=== PATIENT | male | born 1975 | race Hispanic/Latino ===

== ENCOUNTER → 2024-01-29 | Outpatient (CLI) | payer OTHER ==
[2024-01-29 12:26] LABS: CREATININE 0.9 mg/dL (0.5-1.3)
[2024-01-29 12:33] LABS: HEMOGLOBIN A1C 5.9 % (4.0-6.0)
== END | disposition home or self-care (01) ==
LOC: LAB 09:11
PROVIDERS: ATTEND Student in an Organized Health Care Education/Training Program
DX: R07.9 Chest pain, unspecified (principal); E78.5 Hyperlipidemia, unspecified
CPT/HCPCS: 36415; 80048; 80061; 83036

== ENCOUNTER → 2024-03-04 | Outpatient (CLI) | payer OTHER | END | disposition home or self-care (01) | LOC: SHCH 11:28 | PROVIDERS: ATTEND Student in an Organized Health Care Education/Training Program | DX: R07.9 Chest pain, unspecified (principal); I10 Essential (primary) hypertension; E78.5 Hyperlipidemia, unspecified | CPT/HCPCS: 93306 ==

== ENCOUNTER → 2024-05-09 | Outpatient (CLI) | payer OTHER ==
[~2024-05-09] MED LIST: IOHEXOL 350 MG/ML 100ML INFUS..BTL IV ONE; METOPROLOL TARTRATE 1 MG/ML 5ML VIAL IV ONE
== END | disposition home or self-care (01) ==
LOC: RAH 10:40
PROVIDERS: ATTEND Student in an Organized Health Care Education/Training Program
DX: R07.9 Chest pain, unspecified (principal)
CPT/HCPCS: 75574; J3490 ×2; Q9967 ×2

== ENCOUNTER 2024-12-27 08:38 | Emergency (ER) | payer OTHER ==
[~2024-12-27] VITALS: Ht 175.3 cm; Wt 88.0 kg
--- NOTE | 2024-12-27 08:45 | ERN ---
General Chief Complaint: Abdominal Pain Stated Complaint: ABDOMINAL PAIN Time Seen by MD: 08:40 Source: patient, family History of Present Illness Initial Comments PATIENT IS A 49-YEAR-OLD MALE COMING IN TO BE EVALUATED FOR EPIGASTRIC PAIN. PER PATIENT THIS PAIN HAS BEEN ONGOING FOR TWO WEEKS HAS BEEN EVALUATED BY [facility] PAIN WAS GIVEN ANTIBIOTICS FOR A POSSIBLE GASTROENTERITIS. PER PATIENT HE HAD AN ENDOSCOPY AND COLONOSCOPY PERFORMED THEY DID FIND A POLYP IN HIS COLON AND DIVERTICULOSIS. THE PATIENT THE PAIN INTENSIFIED SO HE DECIDED TO COME IN FOR FURTHER EVALUATION. Allergies: Coded Allergies: No Known Drug Allergies (Unverified Allergy, Unknown, 12/27/24) ROS Dictation CONSTITUTIONAL: NO CHILLS, NO FEVER, NO WEAKNESS, NO DIAPHORESIS, NO MALAISE. HEAD/FACE: NO SIGNS OF TRAUMA. EENT: NO EYE PAIN, NO BLURRED VISION, NO TEARING, NO DOUBLE VISION, NO EAR PAIN, NO EAR DISCHARGE, NO NOSE PAIN, NO NASAL CONGESTION, NO THROAT PAIN, NO THROAT SWELLING, NO MOUTH PAIN. RESPIRATORY: NO COUGH, NO ORTHOPNEA, NO SOB, NO STRIDOR, NO WHEEZING. CARDIOVASCULAR: NO CHEST PAIN, NO EDEMA, NO PALPITATIONS, NO SYNCOPE. GASTROINTESTINAL/ABDOMINAL: ABDOMINAL PAIN, NO CONSTIPATION, NO DIARRHEA, NO NAUSEA, NO VOMITING. GENITOURINARY: NO ABNORMAL DISCHARGE, NO DYSURIA, NO FREQUENT URINATION, NO HEMATURIA. NO COMPLAINTS OF PAIN IN THE GENITALS. MUSCULOSKELETAL: NO BACK PAIN, NO GOUT, NO JOINT PAIN, NO JOINT SWELLING, NO MUSCLE PAIN, NO MUSCLE STIFFNESS, NO NECK PAIN. INTEGUMENTARY: NO CHANGE IN COLOR, NO CHANGE IN HAIR/NAILS, NO DRYNESS, NO LESION, NO LUMPS, NO RASH. NEUROLOGICAL/PSYCH: NO ANXIETY, NOT DEPRESSED, NO EMOTIONAL PROBLEM, NO HEADACHE, NO NUMBNESS, NO PRE-EXISTING DEFICIT, NO HISTORY OF SEIZURES, NO TREMORS, NO WEAKNESS. HEMATOLOGIC/LYMPHATIC: NOT ANEMIC, NO HISTORY OF BLOOD CLOTS, NO APPARENT B LEEDING, NO BRUISING, GLANDS NOT SWOLLEN. ALL SYSTEMS NEGATIVE, EXCEPT NOTED. Physical Exam Physical Exam Dictation VITAL SIGNS: REVIEWED. GENERAL APPEARANCE: ALERT, ORIENTED X3, NO ACUTE DISTRESS, OBESE. HEAD AND FACE: NON-TRAUMATIC. EYES: PERRL, PINK CONJUNCTIVAS, EYELID NO TRAUMA, ANTERIOR CHAMBER CLEAR. EARS: PINNAS INTACT AND NO SIGNS OF TRAUMA OR ERYTHEMA. EAR CANALS CLEAR AND NO DISCHARGE. TMS NO ERYTHEMA. NOSE: NO DISCHARGE, NO BLEEDING. OROPHARYNX: MOUTH NORMAL, TEETH NO CARIES, TONGUE PINK. PHARYNX CLEAR, NO ERYTHEMA. TONSILS NO EXUDATES, NO ABSCESSES NOTED. MUCOUS MEMBRANE MOIST. NECK: SUPPLE, NON-TENDER, NO THYROMEGALY, NO MASSES, NO JVD, NO BRUITS. BREAST: DEFERRED. CHEST: NO TENDERNESS, NO CREPITUS, NO PARADOXICAL MOVEMENT, NO RETRACTIONS. LUNGS: CLEAR, WELL-VENTILATED, SYMMETRIC, NO RALES, NO WHEEZING, NO RHONCHI, NO STRIDOR, GOOD BREATH SOUNDS BILATERALLY. HEART: REGULAR RATE, REGULAR RHYTHM, NO MURMUR, NO GALLOPS. VASCULAR: NO PERIPHERAL EDEMA. ABDOMEN: SOFT, POSITIVE BOWEL SOUNDS, NONDISTENDED, NO GUARDING, NONTENDER, NO REBOUND, NO MASSES NO HEPATOMEGALY, NO SPLENOMEGALY, NO LEONARDO'S SIGN, NO HERNIAS. RECTAL: DEFERRED. GENITAL: DEFERRED. NEUROLOGICAL: NORMAL SPEECH, GROSS MOTOR FUNCTION INTACT, GROSS SENSORY FUNCTION INTACT. MUSCULOSKELETAL: NECK NONTENDER, FULL RANGE OF MOTION, BACK NONTENDER, FULL RA NGE OF MOTION. EXTREMITIES: NONTENDER, FULL RANGE OF MOTION. SKIN: COLOR PINK, DRY, NO TURGOR, NO RASH, NO LACERATIONS, NO ABRASIONS, NO CONTUSIONS. LYMPHATICS: DEFERRED. Results Laboratory and Microbiology Lab and Micro Result Laboratory Tests Test 12/27/24 09:00 White Blood Count 6.9 K/uL (4.8-10.8) Red Blood Count 5.36 MIL/uL (4.50-6.20) Hemoglobin 16.1 g/dL (14.0-18.0) Hematocrit 48.8 % (42-54) Mean Corpuscular Volume 91.0 fL (79-99) Mean Corpuscular Hemoglobin 30.0 pg (27.0-33.0) Mean Corpuscular Hemoglobin Concent 33.0 g/dL (32.0-36.0) Red Cell Distribution Width 12.3 % (11.0-15.5) Platelet Count 309 K/uL (130-400) Mean Platelet Volume 10.8 fL (7.5-10.5) H Immature Granulocyte % (Auto) 0.1 % (0-1) Neutrophils (%) (Auto) 48.3 % (40.0-77.0) Lymphocytes (%) (Auto) 41.0 % (21.0-51.0) Monocytes (%) (Auto) 5.6 % (3.0-13.0) Eosinophils (%) (Auto) 4.1 % (0.0-8.0) Basophils (%) (Auto) 0.9 % (0.0-5.0) Neutrophils # (Auto) 3.3 K/uL (1.8-7.7) Lymphocytes # (Auto) 2.8 K/uL (1.0-4.8) Monocytes # (Auto) 0.4 K/uL (0.1-1.0) Eosinophils # (Auto) 0.28 K/uL (0.00-0.70) Basophils # (Auto) 0.06 K/uL (0.00-0.20) Absolute Immature Granulocyte (auto 0.01 K/uL (0-1) Nucleated Red Blood Cells 0.0 % (0.0-0.19) Sodium Level 121 mmol/L (136-145) L Potassium Level 3.4 mmol/L (3.5-5.1) L Chloride Level 100 mmol/L (101-111) L Carbon Dioxide Level 26 mmol/L (21-32) Blood Urea Nitrogen 13 mg/dL (7-18) Creatinine 1.1 mg/dL (0.5-1.3) Glomerular Filtration Rate Calc 82 mL/min (>90) Random Glucose 113 mg/dL (70-105) H Total Calcium 8.8 mg/dL (8.5-10.1) Total Bilirubin 0.4 mg/dL (0.2-1.0) Aspartate Amino Transf (AST/SGOT) 17 U/L (10-37) Alanine Aminotransferase (ALT/SGPT) 31 U/L (12-78) Alkaline Phosphatase 76 U/L (50-136) Total Creatine Kinase 71 U/L (21-232) Troponin I High Sensitivity 4 ng/L (4-75) Total Protein 7.3 g/dL (6.0-8.3) Albumin 3.6 g/dL (3.5-5.0) Lipase 20 U/L (16-77) Labs Reviewed?: Yes EKG/XRAY/US/CT/MRI EKG Comment 12/27/2024 time 8:45 a.m. Ventricular rate [address] wave elevation or depression CT Scan Comment [facility] [address] [place] [address] IMAGING REPORT Signed PATIENT: AZEEM PEDERSON JR MR#: [id number] : 1975 SEX: M AGE: 49 LOCATION: [facility] ORDER 3 STATUS: REG ER REPORT#: [id number] SERVICE REASON: ABD PAIN ORDERING PHYSICIAN: BRADLEY LIANG MD PROCEDURE: ABD PEL WO - CT ABDOMEN/PELVIS W/O CONTRAST CT ABDOMEN/PELVIS W/O CONTRAST HISTORY: Abdominal pain. COMPARISON: None TECHNIQUE: Multiple sequential axial images of the abdomen and pelvis were obtained from the dome of the diaphragm through symphysis pubis. Patient was not given contrast through intravenous route. Oral contrast was not given. FINDINGS: No pleural effusion is seen bilaterally. Minimal left lower lung pulmonary infiltrates are seen. Degenerative changes of the thoracolumbar spine are present. The heart is not enlarged. The liver, spleen, adrenal glands and pancreas are unremarkable. There is no evidence of hydronephrosis bilaterally. No evidence of renal stone is seen. Fecal material is seen in the colon. There are normal size retroperitoneal and mesenteric lymph nodes. No ascites is seen. No CT evidence of acute appendicitis is seen. Apical correlation is recommended. There is minimal diverticulosis. Pelvic sidewalls are symmetric bilaterally. Bladder is poorly distended. IMPRESSION: 1. No acute findings. CT was performed with one or more following dose reduction techniques: automated exposure control, adjustment of the mA and kv according to patient's size, or use of a iterative reconstruction technique. DICTATED BY: GAVINO EVANS MD DATE: 12/27/24 0949 ELECTRONICALLY SIGNED BY: GAVINO EVANS MD DATE: 12/27/24 1005 [facility] MDM: DIFFERENTIAL DIAGNOSIS: Gastritis, GERD, appendicitis, diverticulitis, Patient is a 49-year-old male coming in to be evaluated for abdominal discomfort. Patient states he was evaluated by his PCP and sent for endoscopy and colonoscopy which were negative. Patient is here for further evaluation laboratory workup including CT negative for acute findings. Patient will be discharged in stable condition with a diagnosis of gastritis medication was given for gastritis and patient states he symptoms improved. ED Course Orders Procedure Category Date Status Time Cbc With Differential LAB 12/27/24 Complete 08:42 Comprehensive LAB 12/27/24 Complete Metabolic Panel 08:42 Troponin I High LAB 12/27/24 Complete Sensitivity 08:42 Urinalysis Profile LAB 12/27/24 Logged 08:42 12 Lead Ekg Tracing- EKG 12/27/24 Complete Technical 08:42 0.9%Nacl 1000ml (Ns PHA 12/27/24 Complete 1000ml) 09:00 Ondansetron 4mg Inj PHA 12/27/24 Complete (Zofran 4mg Inj) 09:00 Lidocaine Hcl 2% PHA 12/27/24 Complete Viscous (Lidocaine Hcl 09:00 Mag/Alum/Simeth 30ml PHA 12/27/24 Complete (Maalox Plus 30ml) 09:00 Pantoprazole 40mg Inj PHA 12/27/24 Complete (Protonix 40mg Inj 09:00 Creatine Kinase, Total LAB 12/27/24 Complete 08:42 Ct Abdomen/Pelvis W/O CT 12/27/24 Resulted Contrast 08:42 Lipase LAB 12/27/24 Complete 08:42 Pantoprazole 40mg Inj PHA 12/27/24 Complete (Protonix 40mg Inj 13:46 Ondansetron 4mg Inj PHA 12/27/24 Complete (Zofran 4mg Inj) 13:46 Mag/Alum/Simeth 30ml PHA 12/27/24 Complete (Maalox Plus 30ml) 13:46 Lidocaine Hcl 2% PHA 12/27/24 Complete Viscous (Lidocaine Hcl 13:46 Current Medications Medications (Trade) Dose Ordered Sig/[place] Route PRN Reason Start Time Stop Time Status Last Admin Dose Admin Al Hydroxide/Mg Hydroxide (MAALox PLUS 30ML) 30 ml ONCE ONCE PO 12/27/24 09:00 12/27/24 09:01 DC 12/27/24 13:48 Al Hydroxide/Mg Hydroxide (MAALox PLUS 30ML) 30 ml STK-MED ONCE .ROUTE 12/27/24 13:46 12/27/24 13:46 DC Lidocaine HCl (Lidocaine HCl 2% Viscous) 10 ml ONCE ONCE PO 12/27/24 09:00 12/27/24 09:01 DC 12/27/24 13:48 Lidocaine HCl (Lidocaine HCl 2% Viscous) 15 ml STK-MED ONCE .ROUTE 12/27/24 13:46 12/27/24 13:47 DC Ondansetron HCl (zoFRAN 4MG INJ) 4 mg ONCE ONCE IVP 12/27/24 09:00 12/27/24 09:01 DC 12/27/24 13:48 Ondansetron HCl (zoFRAN 4MG INJ) 4 mg STK-MED ONCE .ROUTE 12/27/24 13:46 12/27/24 13:46 DC Pantoprazole Sodium (PROTonix 40MG INJ) 40 mg ONCE ONCE IVP 12/27/24 09:00 12/27/24 09:01 DC 12/27/24 13:48 Pantoprazole Sodium (PROTonix 40MG INJ) 40 mg STK-MED ONCE .ROUTE 12/27/24 13:46 12/27/24 13:46 DC Sodium Chloride 1,000 ml @ 0 mls/hr ONCE ONCE IV 12/27/24 09:00 12/27/24 09:01 DC 12/27/24 13:48 Vital Signs Date Time Temp Pulse Resp B/P (MAP) Pulse Ox O2 Delivery O2 Flow Rate FiO2 12/27/24 13:56 98.1 68 20 114/75 96 Room Air* 0 21 12/27/24 08:39 98.1 75 18 120/85 Room Air 12/27/24 08:39 98.1 75 18 120/85 95 Room Air* 0 21 DX & DISP Disposition: Discharge Departure Impression: Primary Impression: Gastritis Condition: Stable Scripts Pantoprazole Sodium (Protonix) 40 Mg Ectab 1 TAB PO DAILY for 30 Days, #30 TAB 0 Refills Prov: BRADLEY LIANG MD 12/27/24 Additional Instructions: FOLLOW-UP WITH PRIMARY CARE PROVIDER IN 1 TO 2 DAYS. TAKE MEDICATIONS DIRECTED HERE IN THE EMERGENCY ROOM. OKAY TO CONTINUE HOME MEDICATIONS UNLESS OTHERWISE DISCUSSED DURING YOUR VISIT IN THE EMERGENCY ROOM TODAY. RETURN TO YOUR NEAREST EMERGENCY ROOM IF SYMPTOMS WORSEN OR IF THERE IS NO IMPROVEMENT. CALL 911 IF YOU NEED IMMEDIATE ASSISTANCE. TAKE TYLENOL GLMT-ALF-XCYWERT NEEDED AND IF NO CONTRAINDICATIONS ARE PRESENT. INCREASE ORAL HYDRATION. A WOUND CULTURE OR URINE CULTURE WAS ORDERED HERE IN THE EMERGENCY ROOM DEPARTMENT PLEASE FOLLOW-UP WITH PRIMARY CARE PROVIDER AND ADVISE THEM TO GET REPEAT PORTS FROM OUR FACILITY. IF YOU HAD ANY ALYSON WRAP/SPLINTS THAT WERE APPLIED HERE, PLEASE DO NOT REMOVE THEM UNTIL YOU SEE YOUR PRIMARY CARE OR SPECIALTY. Referrals: Referrals: SIGRID BALDERRAMA MD (PCP) Time of Disposition: 14:36 BRADLEY LIANG MD Dec 27, 2024 08:45
[2024-12-27 09:07] LABS: BASOPHILS # (AUTO) 0.06 K/uL (0.00-0.20); BASOPHILS % (AUTO) 0.9 % (0.0-5.0); EOSINOPHILS # (AUTO) 0.28 K/uL (0.00-0.70); EOSINOPHILS % (AUTO) 4.1 % (0.0-8.0); HEMATOCRIT 48.8 % (42-54); IMMATURE GRANULOCYTE ABSOLUTE 0.01 K/uL (0-1); LYMPHOCYTES # (AUTO) 2.8 K/uL (1.0-4.8); MONOCYTES # (AUTO) 0.4 K/uL (0.1-1.0); MONOCYTES % (AUTO) 5.6 % (3.0-13.0); NEUTROPHILS # (AUTO) 3.3 K/uL (1.8-7.7); NEUTROPHILS % (AUTO) 48.3 % (40.0-77.0); PLATELET COUNT (AUTO) 309 K/uL (130-400); RED BLOOD CELL COUNT(AUTO) 5.36 MIL/uL (4.50-6.20); RED CELL DISTRIBUTION WIDTH 12.3 % (11.0-15.5); WHITE BLOOD COUNT (AUTO) 6.9 K/uL (4.8-10.8)
[2024-12-27 09:46] LABS: ALBUMIN 3.6 g/dL (3.5-5.0); BILIRUBIN,TOTAL 0.4 mg/dL (0.2-1.0); CREATININE 1.1 mg/dL (0.5-1.3); POTASSIUM 3.4 mmol/L (3.5-5.1); TOTAL PROTEIN, SERUM 7.3 g/dL (6.0-8.3)
--- NOTE | 2024-12-27 10:04 | EKG ---
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
--- NOTE | 2024-12-27 10:08 | HMCIMG ---
CT ABDOMEN/PELVIS W/O CONTRAST HISTORY: Abdominal pain. COMPARISON: None TECHNIQUE: Multiple sequential axial images of the abdomen and pelvis were obtained from the dome of the diaphragm through symphysis pubis. Patient was not given contrast through intravenous route. Oral contrast was not given. FINDINGS: No pleural effusion is seen bilaterally. Minimal left lower lung pulmonary infiltrates are seen. Degenerative changes of the thoracolumbar spine are present. The heart is not enlarged. The liver, spleen, adrenal glands and pancreas are unremarkable. There is no evidence of hydronephrosis bilaterally. No evidence of renal stone is seen. Fecal material is seen in the colon. There are normal size retroperitoneal and mesenteric lymph nodes. No ascites is seen. No CT evidence of acute appendicitis is seen. Apical correlation is recommended. There is minimal diverticulosis. Pelvic sidewalls are symmetric bilaterally. Bladder is poorly distended. IMPRESSION: 1. No acute findings. CT was performed with one or more following dose reduction techniques: automated exposure control, adjustment of the mA and kv according to patient's size, or use of a iterative reconstruction technique.
[2024-12-27] MEDS: 0.9%NACL 1000ML 1,000 ML IV ONE (13:48)
[2024-12-27] MEDS: ondanSETRON 4MG INJ IVP ONE (13:48)
[2024-12-27] MEDS: LIDOCAINE HCL 2% VISCOUS 15 ML UDCUP PO ONE (13:48)
[2024-12-27] MEDS: MAG/ALUM/SIMETH 30 ML UDCUP PO ONE (13:48)
[2024-12-27] MEDS: PANTOPrazole 40 MG/VIAL IVP ONE (13:48)
[2024-12-27] MEDS: PANTOPrazole 40 MG/VIAL ONE (13:49)
[2024-12-27] MEDS: LIDOCAINE HCL 2% VISCOUS 15 ML UDCUP ONE (13:49)
[2024-12-27] MEDS: MAG/ALUM/SIMETH 30 ML UDCUP ONE (13:49)
[2024-12-27] MEDS: ondanSETRON 4MG INJ ONE (13:49)
[2024-12-27 14:37] VITALS: BP 121/70; PULSE 72; RESP 18; TEMP 98.7; O2SAT 96
[2024-12-27] MEDS ORDERED: PANT40TA55 PO (14:37)
== END 2024-12-27 14:45 | disposition home or self-care (01) ==
LOC: EDH 08:38
DX: K29.70 Gastritis, unspecified, without bleeding (principal)
CPT/HCPCS: 99285; 74176; 96374; 96375; 82550; 84484; 80053; 83690; 85025; 36415; 93005; J7030; J2405; J2470; 99284